=== PATIENT | female | born 1990 | race Caucasian/White ===

== ENCOUNTER 2016-11-01 16:35 | Emergency (ER) | payer SELFPAY ==
[2016-11-01] MEDS ORDERED: Sodium Chloride 0.9% 1,000 ML PRIMARY IV ONE (17:10)
[2016-11-01] MEDS ORDERED: HYDRALAZINE 20 MG/1 ML IVP ONE (17:10)
--- NOTE | 2016-11-01 17:19 | PDOC ---
Female Problem HPI - General Chief Complaint: Vag Complaint/Bleed, <20WK IUP Stated Complaint: "Bleeding a lot with period" Date Seen by Provider: 11/01/16 Time Seen by Provider: 17:16 Source: POSITIVE: Patient - History of Present Illness Initial Comments: Patient is a very nice 26-year-old who presents to the emergency department with complaints of prolonged vaginal bleeding and then increased vaginal bleeding today. 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 At that point she had a 4 day period which is about 3 days shorter than her typical period. She then started to bleed again about 3 weeks ago and states she has had almost consistent bleeding consistent with the heavy flow days of her period now for about 3 weeks. Today she had some substantial low abdominal cramping and pain associated with increased blood flow resulting in 5 tampons in the last 2-3 hours and is concerned that she's losing too much blood. She also had a bit of a high heart rate which concerned her as well. She denies having any history of blood clotting disorders or problems or anybody in her family having such issues. She's never had any uterine abnormalities that she is aware of. She denies and states that she's had multiple tests over last couple months all of which were negative. The last one was about 3 weeks ago. She denies fever or chills or any other sort of constitutional symptoms. - Patient Allergies Allergies/Adverse Reactions: Allergies Allergy/AdvReac Type Severity Reaction Status Date / Time nickel AdvReac Mild RASH Verified 11/01/16 16:50 Female Genitourinary Exam - General Appearance General Appearance: POSITIVE: Alert, Cooperative, No Acute Distress - HEENT HEENT: POSITIVE: Head Inspection Nml, Eyes Inspection Nml - Respiratory Respiratory: POSITIVE: No Respiratory Distress - Cardiovascular Cardiovascular: POSITIVE: Regular Rate and Rhythm - Abdomen Abdomen: POSITIVE: Soft, Normal Bowel Sounds - Back Back: NEGATIVE: CVA Tenderness (R), CVA Tenderness (L) - Genital / Rectal Pelvic Exam: POSITIVE: Cervix, Vagina, External Exam Normal, Other (There is blood present in the vaginal vault. It is dark appearing blood without any tissue or products of conception. Cervix appears closed. No blood coming from the cervical os at this time.) - Skin Skin: POSITIVE: Intact, Normal For Race - Neurological / Psychological Neurological: POSITIVE: Affect Apporpriate Female Genitourinary Progress - Results Reviewed by me Xrays/CTs/US Reviewed by me: Yes Radiology Findings: no sig intrauterine findings Lab Results Reviewed: Yes Lab Results:: Laboratory Results 11/01/16 11/01/16 Range/Units 16:50 17:28 WBC 8.14 (4.8-10.8) 10^3/uL RBC 4.65 (4.20-5.40) 10^6/uL Hgb 14.7 (12.0-16.0) g/dL Hct 42.2 (37.0-47.0) % MCV 90.8 (81-99) FL MCH 31.6 H (27-31) PG MCHC 34.8 (33-37) g/dL RDW Std Deviation 39.8 (39-50) fL RDW Coeff of Mariel 12.2 (11.5-14.5) % Plt Count 329 (140-350) 10*3/uL MPV 11.2 (7.4-12.2) FL Immature Gran % (Auto) 0.1 (0-5) % Neut % (Auto) 65.1 (50-80) % Lymph % (Auto) 25.3 (10-50) % [place] % (Auto) 8.2 (5-15) % Eos % (Auto) 0.7 (0-8) % Baso % (Auto) 0.6 (0-1) % Immature Gran # (Auto) 0.01 10*3/UL Neut # (Auto) 5.29 10*3/UL Lymph # (Auto) 2.06 10*3/uL [place] # (Auto) 0.67 (0.3-0.8) 10*3/UL Eos # (Auto) 0.06 10*3/UL Baso # (Auto) 0.05 10*3/UL WBC Morphology Comment Normal morphology (NORM) Plt Morphology Comment Normal morphology (NORM) RBC Morph Comment Normal morphology (NORM) PT 10.7 (9.7-11.4) secs INR 1.01 (0.00-5.90) N/A Sodium 142 (135-145) meq/L Potassium 3.8 (3.8-5.2) meq/L Chloride 104 (98-112) meq/L Carbon Dioxide 23 (23-33) meq/L Anion Gap 15 (5-20) BUN 11 (7-22) mg/dL Creatinine 0.9 (0.50-1.20) mg/dL Estimated GFR > 60 (>60 ml/min/1.73m(2)) BUN/Creatinine Ratio 12.22 (6-20) Glucose 111 H (78-110) mg/dL Calculated Osmolality 293.0 H (267-292) mOsm/kg Calcium 9.8 (8.7-10.7) mg/dL Total Bilirubin 0.4 (0.3-1.2) mg/dL AST 22 (8-39) IU/L ALT 23 (9-52) IU/L Alkaline Phosphatase 67 (38-126) IU/L Total Protein 8.4 H (6.1-8.0) g/dL Albumin 4.9 H (3.5-4.8) g/dL Globulin 3.5 (2.50-4.10) g/dL Albumin/Globulin Ratio 1.40 (1.3-2.0) mg/g Serum HCG, Qual Positive HCG, Quant 39.34 mIU/ML Ur Collection Type Voided specimen Urine Color Yellow Urine Clarity Clear (CLEAR) Urine pH 5.5 (5.0-8.5) Ur Specific [place] 1.020 (1.005-1.030) Urine Protein Negative (NEG) mg/dl Urine Glucose (UA) Negative (NEG) mg/dL Urine Ketones Negative (NEG) Urine Occult Blood Trace H (NEG) Urine Nitrate Negative (NEG) Urine Bilirubin Negative (NEG) Urine Urobilinogen 0.2 (0.2) EU/dL Ur Leukocyte Esterase Small (NEG) Urine RBC 0-3 (NONE) /hpf Urine WBC 10-15 (NONE) Ur Squamous Epith Cells Moderate (NONE) Ur Renal Epithelial Cell None (NONE) Urine Crystals None Urine Bacteria None (NONE) Urine Casts None (NONE) Urine Mucus None (NONE) Urine Trichomonas None (NONE) Urine Yeast None (NONE) Ur Culture Indicated? Culture set - Patient's Progress MDM / ED Course: This patient has an odd story and has a very slight elevation in her beta hCG. Ultimately I'm not sure if she is either just very newly or if she is at the end of a miscarriage. I do not see any substantial blood loss as her H& H are normal low and ultrasound does not show any retained products of conception or anything really of concern. I've encouraged her to follow-up with [facility] [facility] in the near future to recheck her quantitative beta hCG. She does return here with any substantial worsening or any other complaints or concerns. Patient Care Time - Estimated PCT Patient Care Time (In Minutes): 40 (her heart rate was in the high 90s with my exam) Vital Signs - Recent Vital Signs Vital Signs: Vital Signs (Last 8 hours) Temp Pulse Resp BP Pulse Ox 11/01/16 16:35 98.7 F 123 H 21 156/119 98 - VS Reviewed Vital Signs Reviewed: Yes (with my exam her heart rate was in the 90s and blood pressures in the 130s ) Discharge Clinical Impression: Threatened Discharge Disposition: Discharged to Home Condition: Good Patient Instructions Given at Discharge: Threatened Miscarriage (ED), (ED) Additional Instructions: Follow-up with obstetrical provider in the very near future Return here with any worsening or any other complaints or concerns
[2016-11-01 17:22] LABS: BLOOD UREA NITROGEN 11 mg/dL (7-22); BUN/CREATININE RATIO 12.22 (6-20); CALCIUM 9.8 mg/dL (8.7-10.7); EST GLOMERULAR FILTRATION > 60 (>60 ml/min/1.73m(2)); SERUM ALBUMIN 4.9 g/dL (3.5-4.8)
[2016-11-01 17:24] LABS: HEMATOCRIT 42.2 % (37.0-47.0); HEMOGLOBIN 14.7 g/dL (12.0-16.0); MEAN CORPUSCULAR HEMOGLOBIN 31.6 PG (27-31); MEAN CORPUSCULAR HGB CONC 34.8 g/dL (33-37); MEAN CORPUSCULAR VOLUME 90.8 FL (81-99); MEAN PLATELET VOLUME 11.2 FL (7.4-12.2); RED BLOOD COUNT 4.65 10^6/uL (4.20-5.40)
[2016-11-01 17:25] LABS: BASOPHILS # (AUTO) 0.05 10*3/UL; BASOPHILS % (AUTO) 0.6 % (0-1); EOSINOPHILS # (AUTO) 0.06 10*3/UL; EOSINOPHILS % (AUTO) 0.7 % (0-8); LYMPHOCYTES # (AUTO) 2.06 10*3/uL; MONOCYTES # (AUTO) 0.67 10*3/UL (0.3-0.8); MONOCYTES % (AUTO) 8.2 % (5-15); NEUTROPHILS # (AUTO) 5.29 10*3/UL; NEUTROPHILS % (AUTO) 65.1 % (50-80); PLATELET MORPHOLOGY COMMENT NORMAL MORPHOLOGY (NORM); RBC MORPHOLOGY COMMENT NORMAL MORPHOLOGY (NORM); WBC MORPHOLOGY COMMENT NORMAL MORPHOLOGY (NORM)
[2016-11-01 17:26] VITALS: RESP 21; TEMP 98.7
[2016-11-01 17:36] LABS: BILIRUBIN,URINE NEGATIVE (NEG); CLARITY,URINE CLEAR (CLEAR); COLOR,URINE YELLOW; GLUCOSE, URINE (UA) NEGATIVE (NEG); NITRATE,URINE NEGATIVE (NEG); OCCULT BLOOD,URINE TRACE (NEG); PH,URINE 5.5 (5.0-8.5); PROTEIN,URINE NEGATIVE (NEG); RBC,URINE 0-3 /hpf; URINE SAMPLE TYPE VOIDED SPECIMEN; UROBILINOGEN,URINE 0.2 EU/dL (0.2)
[2016-11-01 17:37] LABS: SQUAMOUS EPITHELIAL CELL,UR MODERATE
--- NOTE | 2016-11-01 20:15 | DI ---
US OB LESS THAN 14 WEEKS,11/01/2016 5:33 PM: Clinical History: Prolonged vaginal bleeding and positive test. Previous Exam: None at this facility. Findings: Multiple transvaginal grayscale and color Doppler sonographic images are obtained through the pelvis demonstrating a normal-appearing uterus measuring 7.5 x 3.6 x 4.6 cm. The endometrial stripe appears normal. The ovaries are normal bilaterally with normal Doppler flow. The right ovary measures 2.1 x 1.2 x 1.1 cm. The left ovary measures 2.3 x 1.8 x 1.9 cm. There is a trace amount of free fluid within the cul-de-sac. There is no evidence of gestational sac at this time. Impression: 1. No obvious intrauterine identified.
== END 2016-11-01 20:07 | disposition home or self-care (01) ==
LOC: ER 16:35
DX: O20.0 Threatened abortion (principal); N93.9 Abnormal uterine and vaginal bleeding, unspecified
CPT/HCPCS: 76801; 80053; 81001; 81003; 84702; 84703; 85025; 85610; 87077; 87088; 87186 ×2; 96361; 96374; 99283 ×2; J0360; J7030

== ENCOUNTER 2016-11-03 14:20 | Emergency (ER) | payer SELFPAY ==
--- NOTE | 2016-11-03 15:13 | PDOC ---
Gen Adult / Medical Screen HPI - General Chief Complaint: General Medical Stated Complaint: HCG RECHECK Date Seen by Provider: 11/03/16 Time Seen by Provider: 15:11 Source: POSITIVE: Patient Exam Limitations: POSITIVE: No limitations Nurse's Notes Reviewed & Considered: Yes - Indicators Temperature Between 95 and 101 Degrees: Yes Respirations Between 12 and 20: Yes Blood Pressure Between 100-165 (sys) and 60-100 (hinton): No Pulse Range Between 60-105 (100 for age > 60 years): Yes Severe Pain (Greater than 5/10 Reported): Yes Chest or Abdominal Pain: No Inability to Walk: No Pt Reports Active High Risk Cond. (TB/Hepatitis/HIV/Chemo): No Abnormal Mental Status: No - History of Present Illness Initial Comments: Pleasant 26-year-old female who recently moved to [place] from [facility]. She is complaining of vaginal bleeding. She was seen in the emergency department 2 days ago and it was uncertain whether she had an early or was having a miscarriage. She is come back for repeat beta hCG measurement. She states she has continued to bleed since her ER visit. She is a Ab3. Body Location Affected: REPORTS: Abdomen, Genitalia Timing: REPORTS: Constant Duration: Unknown Similar Symptoms Previously: No Recent Care Received: REPORTS: Recently Seen Any Prior Injuries Related to Current Complaint?: No - Patient Home Medications Home Medications: Home Medications NK [No Home Medications Reported] 11/03/16 - Patient Allergies Allergies/Adverse Reactions: Allergies Allergy/AdvReac Type Severity Reaction Status Date / Time nickel AdvReac Mild RASH Verified 11/03/16 14:40 Past Medical History - heen HEENT History: Denies History Cardiovascular History: Hypertension, Other (please comment) Additional Cardiovasular History: tachycardic Gastrointestinal History: Denies History Genitourinary History: Denies History Endocrine History: Denies History Musculoskeletal History: Denies History Neurological History: Denies History Blood Disorders: Denies History History of Sexually Transmitted Diseases: No Cancer History: Denies History History of MDRO: No History of Other Communicable Diseases: No Alcohol Use: None Substance Use Type: None Previous Surgical History: No Anesthesia Reactions: No Malignant Hyperthermia: No ROS - Limitations ROS Limitations: No Limitations Constitution: REPORTS: Denies Symptoms Cardiovascular: REPORTS: Denies Cardiac Symptoms Respiratory: REPORTS: Denies Resp Symptoms Neurological: REPORTS: Denies Neuro Symptoms Endocrine: REPORTS: Denies Symptoms Musculoskeletal: REPORTS: Denies MS Symptoms Genitourinary: REPORTS: Other (Vaginal bleeding) Eyes: REPORTS: Denies Symptoms ENT: REPORTS: Denies Symptoms Skin: REPORTS: Denies Skin Symptoms Lympathic: REPORTS: Denies Lympathic Symptoms Immunologic: POSITIVE: Denies Symptoms Psychiatric: POSITIVE: Denies Psych Symptoms Gen Adult/Medical Screen Exam - General Appearance General Appearance: POSITIVE: Alert, Cooperative, No Acute Distress, No Evidence of Trauma - HEENT HEENT: POSITIVE: Head Inspection Nml, Eyes Inspection Nml, Ears Inspection Nml, Nose Inspection Nml, Oral/Dental Inspect. Nml, Pharynx Inspect. Nml, PERRL, EOMI - Pupils Pupil Size: 5 mm: Bilateral - Neck Neck: POSITIVE: Normal Inspection Procedures - Laceration/Wound Repair Did patient have a laceration repair: No Gen Adlt/Medical Scrn Progress - Results Reviewed by me Lab Results Reviewed: Yes Lab Results:: Laboratory Results 11/03/16 Range/Units 15:15 WBC 8.78 (4.8-10.8) 10^3/uL RBC 4.49 (4.20-5.40) 10^6/uL Hgb 14.0 (12.0-16.0) g/dL Hct 40.6 (37.0-47.0) % MCV 90.4 (81-99) FL MCH 31.2 H (27-31) PG MCHC 34.5 (33-37) g/dL RDW Std Deviation 39.8 (39-50) fL RDW Coeff of Mariel 12.2 (11.5-14.5) % Plt Count 345 (140-350) 10*3/uL MPV 10.9 (7.4-12.2) FL HCG, Quant 21.32 mIU/ML Blood Type O POSITIVE - Patient's Progress Pain Medication Addressed: POSITIVE: Not Applicable Status: POSITIVE: Improved MDM / ED Course: Patient examined, blood drawn and sent to lab for studies. FINDINGS: Patient is O pos, H&H is stable, Bhcg is 35. 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
[2016-11-03 15:28] LABS: HEMATOCRIT 40.6 % (37.0-47.0); MEAN CORPUSCULAR HEMOGLOBIN 31.2 PG (27-31); MEAN CORPUSCULAR HGB CONC 34.5 g/dL (33-37); MEAN CORPUSCULAR VOLUME 90.4 FL (81-99); MEAN PLATELET VOLUME 10.9 FL (7.4-12.2); RED BLOOD COUNT 4.49 10^6/uL (4.20-5.40)
[2016-11-03 16:04] VITALS: RESP 18; TEMP 97.8
== END 2016-11-03 16:46 | disposition home or self-care (01) ==
LOC: ER 14:20
DX: O03.9 Complete or unspecified spontaneous abortion without complication (principal); O20.9 Hemorrhage in early pregnancy, unspecified
CPT/HCPCS: 84702; 85027; 86900; 86901; 99282

== ENCOUNTER 2016-11-27 12:12 | Emergency (ER) | payer SELFPAY ==
[2016-11-27 12:39] VITALS: RESP 20; TEMP 97.6
--- NOTE | 2016-11-27 12:49 | PDOC ---
Female Problem HPI - General Chief Complaint: Vag Complaint/Bleed, <20WK IUP Stated Complaint: vaginal bleeding, cramping Date Seen by Provider: 11/27/16 Time Seen by Provider: 12:37 Source: POSITIVE: Patient - History of Present Illness Initial Comments: Patient is a very nice 26-year-old woman well known to myself from previous ER visit who presents today with complaints of recurrent vaginal bleeding. She states that when she was last seen in the emergency department she was diagnosed with miscarriage and had a ultrasound not showing any evidence of and after her emergency department stay she had a repeat quantitative beta hCG and this was dropping. This was about 3 weeks ago. She did have another week and a half or so bleeding in in a couple of days where she felt like the bleeding had stopped but then it returned and she's been bleeding over the last week or so. She feels her bleeding today is 11 years and has been in the past. She did not follow-up with [facility] at all. - Patient Home Medications Home Medications: Home Medications NK [No Home Medications Reported] 11/03/16 - Patient Allergies Allergies/Adverse Reactions: Allergies Allergy/AdvReac Type Severity Reaction Status Date / Time nickel AdvReac Mild RASH Verified 11/27/16 12:13 Past Medical History - heen HEENT History: Denies History Cardiovascular History: Hypertension, Other (please comment) Additional Cardiovasular History: tachycardic Respiratory History: Denies History Gastrointestinal History: Denies History Genitourinary History: Denies History Endocrine History: Denies History Musculoskeletal History: Denies History Prosthesis or Implant: No Neurological History: Denies History Blood Disorders: Denies History Psychiatric History: Denies History History of Sexually Transmitted Diseases: No Cancer History: Denies History History of MDRO: No History of Other Communicable Diseases: No Alcohol Use: None Substance Use Type: None Previous Surgical History: No Anesthesia Reactions: No Malignant Hyperthermia: No Significant Family History: No pertinent family hx Past Medical History Reviewed: Reviewed - No Changes ROS - Limitations ROS Limitations: No Limitations Constitution: REPORTS: Denies Symptoms Cardiovascular: REPORTS: Denies Cardiac Symptoms Respiratory: REPORTS: Denies Resp Symptoms Neurological: REPORTS: Denies Neuro Symptoms Female Genitourinary Exam - General Appearance General Appearance: POSITIVE: Alert, Cooperative, No Acute Distress - HEENT HEENT: POSITIVE: Head Inspection Nml - Cardiovascular Cardiovascular: POSITIVE: Regular Rate and Rhythm - Abdomen Abdomen: POSITIVE: Soft, Normal Bowel Sounds, Non-Tender - Back Back: POSITIVE: Normal Inspection - Genital / Rectal Pelvic Exam: POSITIVE: Other (Cervical loss minimally to slightly dilated with blood at the os and blood in the vaginal vault no evidence of tissue) - Neurological / Psychological Neurological: POSITIVE: Affect Apporpriate Female Genitourinary Progress - Results Reviewed by me Lab Results:: Laboratory Results 11/27/16 11/27/16 Range/Units 13:14 13:40 WBC 10.29 (4.8-10.8) 10^3/uL RBC 4.35 (4.20-5.40) 10^6/uL Hgb 14.0 (12.0-16.0) g/dL Hct 39.2 (37.0-47.0) % MCV 90.1 (81-99) FL MCH 32.2 H (27-31) PG MCHC 35.7 (33-37) g/dL RDW Std Deviation 37.1 L (39-50) fL RDW Coeff of Mariel 11.5 (11.5-14.5) % Plt Count 291 (140-350) 10*3/uL MPV 11.0 (7.4-12.2) FL Immature Gran % (Auto) 0.2 (0-5) % Neut % (Auto) 74.4 (50-80) % Lymph % (Auto) 16.5 (10-50) % [place] % (Auto) 7.9 (5-15) % Eos % (Auto) 0.3 (0-8) % Baso % (Auto) 0.7 (0-1) % Immature Gran # (Auto) 0.02 10*3/UL Neut # (Auto) 7.66 10*3/UL Lymph # (Auto) 1.70 10*3/uL [place] # (Auto) 0.81 H (0.3-0.8) 10*3/UL Eos # (Auto) 0.03 10*3/UL Baso # (Auto) 0.07 10*3/UL WBC Morphology Comment Normal morphology (NORM) Plt Morphology Comment Normal morphology (NORM) RBC Morph Comment Normal morphology (NORM) Sodium 145 (135-145) meq/L Potassium 4.0 (3.8-5.2) meq/L Chloride 114 H (98-112) meq/L Carbon Dioxide 18 L (23-33) meq/L Anion Gap 13 (5-20) BUN 9 (7-22) mg/dL Creatinine 0.9 (0.50-1.20) mg/dL Estimated GFR > 60 (>60 ml/min/1.73m(2)) BUN/Creatinine Ratio 10.00 (6-20) Glucose 91 (78-110) mg/dL Calculated Osmolality 298.0 H (267-292) mOsm/kg Calcium 10.1 (8.7-10.7) mg/dL Total Bilirubin 0.6 (0.3-1.2) mg/dL AST 15 (8-39) IU/L ALT 24 (9-52) IU/L Alkaline Phosphatase 53 (38-126) IU/L Total Protein 7.6 (6.1-8.0) g/dL Albumin 4.6 (3.5-4.8) g/dL Globulin 3.0 (2.50-4.10) g/dL Albumin/Globulin Ratio 1.50 (1.3-2.0) mg/g HCG, Quant 3.36 mIU/ML - Patient's Progress MDM / ED Course: This patient states that she had a couple of positive tests over the last week or 2 she has a very low 8 hCG level at around 3. She has a benign appearing ultrasound she does have a cervix that appears mildly dilated with no obvious tissue present but active bleeding. Her H&H are fine. Ultimately have told her this could be anything from a very early that we cannot see anything on ultrasound with or continued hormonal changes from her recent miscarriage only around 3 weeks ago or persistence towards a more regular cycle. Ultimately I think she needs to follow-up with [employer] for further outpatient management. I see nothing of concern here today. Patient Care Time - Estimated PCT Patient Care Time (In Minutes): 35 Vital Signs - Recent Vital Signs Vital Signs: Vital Signs (Last 8 hours) Temp Pulse Resp BP Pulse Ox 11/27/16 12:12 97.6 F 118 H 20 144/104 98 - VS Reviewed Vital Signs Reviewed: Yes Discharge Clinical Impression: Abnormal vaginal bleeding Discharge Disposition: Discharged to Home Condition: Stable Patient Instructions Given at Discharge: Threatened Miscarriage (ED) Additional Instructions: Follow-up with [employer] COMP[employer] EXAM[employer] provider in the next week Follow-up with repeat quantitative beta hCG in the next few days Return here with any other increased symptoms complaints increased bleeding or other concerns Follow Up With: NONE,NONE [Primary Care Provider] -
[2016-11-27 13:45] LABS: BASOPHILS # (AUTO) 0.07 10*3/UL; BASOPHILS % (AUTO) 0.7 % (0-1); EOSINOPHILS # (AUTO) 0.03 10*3/UL; EOSINOPHILS % (AUTO) 0.3 % (0-8); HEMATOCRIT 39.2 % (37.0-47.0); MEAN CORPUSCULAR HEMOGLOBIN 32.2 PG (27-31); MEAN CORPUSCULAR HGB CONC 35.7 g/dL (33-37); MEAN CORPUSCULAR VOLUME 90.1 FL (81-99); MONOCYTES # (AUTO) 0.81 10*3/UL (0.3-0.8); MONOCYTES % (AUTO) 7.9 % (5-15); NEUTROPHILS # (AUTO) 7.66 10*3/UL; NEUTROPHILS % (AUTO) 74.4 % (50-80); RED BLOOD COUNT 4.35 10^6/uL (4.20-5.40)
[2016-11-27 13:47] LABS: PLATELET MORPHOLOGY COMMENT NORMAL MORPHOLOGY (NORM); RBC MORPHOLOGY COMMENT NORMAL MORPHOLOGY (NORM); WBC MORPHOLOGY COMMENT NORMAL MORPHOLOGY (NORM)
[2016-11-27 13:58] LABS: BLOOD UREA NITROGEN 9 mg/dL (7-22); CALCIUM 10.1 mg/dL (8.7-10.7); EST GLOMERULAR FILTRATION > 60 (>60 ml/min/1.73m(2)); SERUM ALBUMIN 4.6 g/dL (3.5-4.8)
--- NOTE | 2016-11-27 16:19 | DI ---
PELVIC ULTRASOUND, 11/27/2016 12:27 PM Clinical History: Vaginal bleeding x3 weeks post miscarriage. Previous Exam: None at this facility. Technique: Transvaginal scans are performed. The uterus measures approximately 45 x 45 x 75 mm. There is no decidual reactive change or evidence o f an intrauterine gestational sac or retained products of conception. The central uterine stripe hyacinth ures 2 mm. The ovaries are normal and demonstrate vascular flow. There are no fluid collections or ma sses. Reading: Normal pelvic ultrasound. There is no evidence of retained products of conception or of an intrauteri ne gestational sac.
== END 2016-11-27 16:53 | disposition home or self-care (01) ==
LOC: ER 12:12
DX: N93.9 Abnormal uterine and vaginal bleeding, unspecified (principal)
CPT/HCPCS: 36415; 76830; 80053; 84702; 85025; 99283